=== PATIENT | female | born 1970 | race Hispanic/Latino ===

== ENCOUNTER → 2024-04-21 | Day surgery (SDC) | payer OTHER ==
[~2024-04-21] MED LIST: CYMBALTA20 MG PO; FAMOTIDINE20 MG PO; FENTANYL CITRATE/PF 100MCG/2 ML INJ ONE; GLIMEPIRIDE2 MG PO; LIDOCAINE HCL 2% LOCAL INJ 5 ML SDV VIAL INJ ONE; LISINOPRIL2.5 MG PO; METFORMIN HCL500 MG PO; NEURONTIN400 MG PO; OMEPRAZOLE40 MG PO; PRAVASTATIN SOD20 MG PO; PROPOFOL IV EMULSION 10 MG/ML 20 ML VIAL ONE; PROPOFOL IV EMULSION 50 ML IV ONE
[2024-04-21] MEDS: LACTATED RINGER'S 1,000 ML ONE (07:06)
[2024-04-21 10:29] VITALS: TEMP 97.7
[2024-04-21 10:50] VITALS: BP 121/74; PULSE 71; RESP 18; O2SAT 99
== END | disposition home or self-care (01) ==
LOC: OR 06:58
PROVIDERS: ATTEND Internal Medicine Gastroenterology
DX: Z12.11 Encounter for screening for malignant neoplasm of colon (principal); D12.0 Benign neoplasm of cecum; K29.50 Unspecified chronic gastritis without bleeding; B96.81 Helicobacter pylori [H. pylori] as the cause of diseases classified elsewhere; K31.A12 Gastric intestinal metaplasia without dysplasia, involving the body (corpus); R13.10 Dysphagia, unspecified; K21.9 Gastro-esophageal reflux disease without esophagitis; R19.8 Other specified symptoms and signs involving the digestive system and abdomen; K62.5 Hemorrhage of anus and rectum; K64.8 Other hemorrhoids; I10 Essential (primary) hypertension; E78.5 Hyperlipidemia, unspecified; E11.9 Type 2 diabetes mellitus without complications; G89.29 Other chronic pain; F32.A Depression, unspecified; Z88.2 Allergy status to sulfonamides; Z01.810 Encounter for preprocedural cardiovascular examination; Z79.84 Long term (current) use of oral hypoglycemic drugs; Z79.899 Other long term (current) drug therapy
CPT/HCPCS: 43239; 45380; 45384; 93005; J2003; J2704 ×2; J3010; J7121

== ENCOUNTER → 2024-05-14 | Outpatient (REF) | payer OTHER ==
[~2024-05-14] MED LIST changes: -FENTANYL CITRATE/PF 100MCG/2 ML INJ ONE; -LIDOCAINE HCL 2% LOCAL INJ 5 ML SDV VIAL INJ ONE; -PROPOFOL IV EMULSION 10 MG/ML 20 ML VIAL ONE; -PROPOFOL IV EMULSION 50 ML IV ONE
== END ==
LOC: US 10:27
PROVIDERS: ATTEND Internal Medicine Gastroenterology
DX: R74.8 Abnormal levels of other serum enzymes (principal)
CPT/HCPCS: 76705